=== PATIENT | female | born 1995 | race Hispanic/Latino ===

== ENCOUNTER 2017-06-17 23:15 | Day surgery (SDC) | payer OTHER ==
[2017-06-18 02:19] LABS: #Eosinphils 0.1 thou/uL (0.0-0.7); #Lymphocytes 1.2 thou/uL (1.20-3.40); #Monocytes 0.6 thou/uL (0.11-0.59); #Neutrophils 8.1 thou/uL (1.40-6.50); %Basophils 0.3 % (0.0-1.0); %Eosinophils 1.4 % (0.0-10.0); %Lymphocytes 12.3 % (28.0-48.0); %Monocytes 5.8 % (0.0-4.0); Hematocrit 30.3 % (36.0-47.0); Mean Platelet Volume 7.7 fL (7.4-10.4); Red Blood Cell (RBC) Count 3.24 mill/uL (4.00-5.20); White Blood Cell (WBC) Count 10.1 thou/uL (4.8-10.8)
[2017-06-18 02:36] LABS: ALT (SGPT) 13 U/L (8-55); AST (SGOT) 18 U/L (5-34); Alkaline Phosphatase 85 U/L (40-150); Anion Gap 11 mmol/L (10-20); BUN (Urea Nitrogen) 12 mg/dL (7.0-18.7); Bilirubin, Total 0.3 mg/dL (0.2-1.2); Calc. Creatinine Clearance 0 mL/min (70-130); Calcium 9.3 mg/dL (7.8-10.44); Carbon Dioxide 21 mmol/L (22-29); Chloride 106 mmol/L (98-107); Estimated GFR-MDRD Greater than 90; Globulin 3.1 g/dL (2.4-3.5); Protein, Total 6.7 g/dL (6.0-8.3)
[2017-06-18] MEDS ORDERED: Metoclopramide HCl 10 MG/2 ML VIAL ONE (02:49)
[2017-06-18] MEDS ORDERED: Acetaminophen 500 MG TAB ONE (02:49)
--- NOTE | 2017-06-18 04:45 | PRG ---
DATE OF SERVICE: 06/18/2017 TIME: 0155 PHONE CONSULTATION BY THE ER In brief, I just received a phone call by the ER physician on this patient. Apparently, she is a 22 -year-old female with a history of known seizures that has been poorly controlled. She takes Lamict al during this . She states that her seizure activity has continued with about 1-2 seizure s a month during the . According to the ER physician, she is \\\\"6-1/2 months\\\\" but is uns ure of her due date. The ER physician states that she has an GEOLOGIST [facility] physician at another hospital for special care. In the ER, her blood pressure is 110/56, pulse is 89, respirations are 16, temperature is 98.5. OB HISTORY: She is a primigravida. This patient has not been fully evaluated yet in the ER. She p resented today due to a seizure, which is similar to prior seizures she has had. The labor and delivery nurses were made aware of the patient's arrival and had gone down previously to the ER and applied monitors on this patient. According to their report, heart tracin g was with moderate variability and no decelerations. There is no evidence of contractions or vagin al bleeding or ruptured membranes. ASSESSMENT: I just received a phone call on this patient approximately 5 minutes ago by the ER phys jami. This patient is still pending workup. I suggested the following: PLAN: 1. OB ultrasound for dates and confirmation of absence of abnormalities. 2. CBC and complete metabolic profile. 3. Type and Rh. 4. If her workup is compatible with recurrent seizure activity without evidence of contraction lito lety, we may release as an outpatient. 5. For now, we will continue the ER observation with possible transport to Labor and Delivery for o bservation if needed. 6. Once again, this patient has not been fully evaluated by the ER and I just received a rapid phon e call on her notified me of the patient's arrival. We will assess her once the labs and workup is complete in the ER for possible evaluation here in Labor and Delivery.
[2017-06-18] MEDS ORDERED: lamoTRIgine 100 MG TAB PO SCH (05:30)
[2017-06-18 07:38] VITALS: BMI 32.7
--- NOTE | 2017-06-18 08:01 | PRG ---
DATE OF SERVICE: 06/18/2017 TIME OF EVALUATION: 0655 LOCATION: Labor and Delivery triage. REASON FOR OBSERVATION: History of epilepsy with recurrent seizures on Lamictal. HISTORY OF PRESENT ILLNESS: In brief, this is a patient that I had previously dictated on who is a 22-year-old primigravida at 26 weeks and 6 days who was first seen in the ER for recurrent seizure a ctivity (history of epilepsy, no evidence of status epilepticus) and was evaluated earlier with a no nstress test done in the ER. She has been cleared by the ER and I requested that she come up to Lab or and Delivery for nonstress test continuation and to see if Neurology could evaluate the patient. In brief, she was diagnosed with epilepsy at age 15 and has tried a variety of medications. She is currently on Lamictal 200 mg p.o. b.i.d. In the ER, she received an additional 200 mg dose. In e ER, there was no evidence of preeclampsia or abruption. For full details of the initial evaluation from the ER, please turn to that progress note dictated f ew hours ago. I evaluated the patient at bedside on arrival to Labor and Delivery. There is no evidence of uterin e hypertonus or vaginal bleeding. There is no evidence of rupture of membranes. Interventions orde red and an obstetrical ultrasound has been performed in the ER and the results are pending. CONSULTATIONS: Pending, Neurology if available. ASSESSMENT: This is a 22-year-old primigravida at 26 weeks and [address] Adkins for [facility]. She has a neurologist as well, that is Dr. Mendez. PLAN: 1. Nonstress test for now. 2. See if Dr. Mendez and/or covering neurologist can have some assistance during today's observati on. 3. Observe for now. 4. This may be managed as an outpatient, but we will try a Neurology consultation first.
[2017-06-18 09:36] VITALS: TEMP 98.4
--- NOTE | 2017-06-18 11:13 | ULT ---
PRELIMINARY REPORT/[facility]/EMERGENCY AFTER HOURS PROCEDURE: EXAM: US Uterus, Limited CLINICAL HISTORY: 22 years old, female; Pain; Other: S/P seizure- llq pain; Gestational age or lmp: 27wks; TECHNIQUE: Real-time ultrasound of the maternal uterus (limited) with image documentation. COMPARISON: No relevant prior studies available. FINDINGS: Fetus: Single living intrauterine gestation. Heart rate: 131 bpm Presentation: Vertex. Placenta: Anterior. No abruption. Amniotic fluid: Normal. NETTE 19.6 cm. Anatomy: Visualized anatomy is unremarkable. BIOMETRICS Gestational age by US: 27w0d EFW: 1014g - %15 MATERNAL: Uterus: No myometrial mass. Cervix: Unremarkable. Free fluid: No significant free fluid. IMPRESSION: Single viable intrauterine . No acute findings. Thank you for allowing us to participate in the care of your patient. Dictated and Authenticated by: Roni Garg MD 06/18/2017 3:24 AM Central Time ([place] \T\ [place]) FINAL REPORT LIMITED OBSTETRIC SONOGRAM: DATE: 06/18/17. TIME: Performed on emergency basis at 0222 hours. HISTORY: Seizure. Second-trimester . FINDINGS: Findings agree with the preliminary report by Dr. Garg from [facility]. Estimated gestation al age is 27 weeks 0 days. No significant abnormalities are demonstrated. POS: SHAAN
--- NOTE | 2017-06-18 15:42 | DIS ---
DATE OF ADMISSION: 06/18/2017 DATE OF DISCHARGE: 06/18/2017 REASON FOR ADMISSION: Poorly controlled epilepsy at 26 weeks gestation. SUMMARY OF HOSPITAL COURSE: Ms. Long was seen in the emergency room, presenting with poorly contr olled seizures. It does not sound like they were any more or less poorly controlled than before upo n her presentation and did not have status epilepticus. She was seen in the emergency room and then taken to the labor and delivery unit to further assess her fetus as well as to rule out preeclampsi a. Preeclampsia evaluation was negative. The patient has a history of poorly controlled seizures a nd sees Dr. Alexey Adkins at the [facility] and Dr. Demetri Mendez, neurologist, em ployed by [facility]. Phone call was placed with Dr. Mendez and her case was discuss ed. He recommended increasing her Lamictal from 200 p.o. b.i.d. to 200 mg q.a.m., 300 mg p.o. at be dtime, and to call his office in 2 days for followup. This instruction was given to the patient, an d the patient was discharged home. We are unable to get a complete nonstress test due to the patien t's noncooperation with lying on her back; however, intermittent monitoring revealed FHTs in t he 140s to 160s, no decelerations, no contractions noted, and no evidence of distress.
== END 2017-06-18 10:15 | disposition home health service (06) ==
LOC: ERS 23:15 → L&D/OP 23:15 → ERS 06-18 04:35 → L&D/OP 06-18 04:43
PROVIDERS: ATTEND Obstetrics & Gynecology
DX: O99.352 Diseases of the nervous system complicating pregnancy, second trimester (principal); G40.909 Epilepsy, unspecified, not intractable, without status epilepticus; Z3A.26 26 weeks gestation of pregnancy; Z79.899 Other long term (current) drug therapy
CPT/HCPCS: 36415; 76815; 80053; 85025; 96361; 96365; J2765

== ENCOUNTER 2017-09-26 23:24 | Emergency (ER) | payer OTHER ==
[2017-09-27] MEDS ORDERED: Ketorolac Tromethamine 30 MG/ML VIAL ONE (01:20)
[2017-09-27] MEDS ORDERED: Metoclopramide HCl 10 MG/2 ML VIAL ONE (01:21)
[2017-09-27 01:28] LABS: #Eosinphils 0.2 thou/uL (0.0-0.7); #Monocytes 0.4 thou/uL (0.11-0.59); #Neutrophils 5.8 thou/uL (1.40-6.50); %Basophils 0.5 % (0.0-1.0); %Eosinophils 2.6 % (0.0-10.0); %Monocytes 5.1 % (0.0-4.0); %Neutrophils 77.8 % (31.0-61.0); Hemoglobin 11.4 g/dL (12.0-16.0); Mean Corpuscular HGB CONC 33.3 g/dL (32.0-36.0); Mean Corpuscular Hemoglobin 27.9 pg (25.0-35.0); Mean Corpuscular Volume 83.9 fl (77.0-87.0); Mean Platelet Volume 7.4 fL (7.4-10.4); Platelet Count 285 thou/uL (130-400); Red Blood Cell (RBC) Count 4.07 mill/uL (4.00-5.20); White Blood Cell (WBC) Count 7.4 thou/uL (4.8-10.8)
[2017-09-27 01:50] LABS: ALT (SGPT) 11 U/L (8-55); AST (SGOT) 16 U/L (5-34); Alkaline Phosphatase 138 U/L (40-150); Anion Gap 13 mmol/L (10-20); BUN (Urea Nitrogen) 18 mg/dL (7.0-18.7); Bilirubin, Total 0.2 mg/dL (0.2-1.2); Calc. Creatinine Clearance 0 mL/min (70-130); Calcium 9.4 mg/dL (7.8-10.44); Carbon Dioxide 25 mmol/L (22-29); Chloride 105 mmol/L (98-107); Estimated GFR-MDRD 86; Globulin 3.1 g/dL (2.4-3.5); Glucose 107 mg/dL (70-105); Magnesium 2.3 mg/dL (1.7-2.2); Potassium 4.3 mmol/L (3.5-5.1); Protein, Total 7.1 g/dL (6.0-8.3); Sodium 139 mmol/L (136-145)
[2017-09-27 02:45] LABS: Bilirubin Negative (Negative); Blood, Urine Large (Negative); Clarity CLOUDY (Clear); Glucose, Urine (Dipstick) Negative (Negative); Leukocyte Moderate (Negative); Nitrite Negative (Negative); Protein, Urine (Dipstick) 30 mg/dL (Neg-Trace); Specific Gravity, Urine 1.027 (1.002-1.036)
[2017-09-27 02:47] LABS: Bacteria/HPF 1+ HPF (None Seen); Hyaline Casts/LPF 4-6 HYALINE CAST LPF (0-3 Hyaline); Pathc Cast-AUWi Flag 0.94 (0-2.49); RBC/HPF 0-3 HPF (0-3)
[2017-09-27 02:50] LABS: Yeast-AUWi Flag 76.6 (0-25.0)
[2017-09-27 02:59] LABS: Yeast-All Forms None Seen HPF (None Seen)
== END 2017-09-27 03:44 | disposition home or self-care (01) ==
LOC: ERS 23:24
DX: G40.909 Epilepsy, unspecified, not intractable, without status epilepticus (principal); N39.0 Urinary tract infection, site not specified; Z79.899 Other long term (current) drug therapy
CPT/HCPCS: 36415; 80053; 81003; 81015; 83615; 83735; 85025; 96365; 96375; J1885; J2765

== ENCOUNTER 2018-01-07 17:14 | Inpatient (IN) | payer OTHER, SELFPAY ==
[2018-01-07] MEDS ORDERED: Lorazepam 2 MG/ML VIAL ONE (17:38)
[2018-01-07] MEDS ORDERED: OXcarbazepine 300 MG TAB PO SCH (18:00)
[2018-01-07] MEDS ORDERED: levETIRAcetam In NaCl (Iso-Os) 1,000 MG in Premix Bag 1 BAG IVPB ONE ×2 (18:00→20:45)
[2018-01-07 18:43] LABS: #Basophils 0.1 thou/uL (0.0-0.2); #Eosinphils 0.1 thou/uL (0.0-0.7); #Lymphocytes 1.7 thou/uL (1.20-3.40); #Monocytes 0.6 thou/uL (0.11-0.59); %Basophils 0.5 % (0.0-1.0); %Eosinophils 1.2 % (0.0-10.0); %Lymphocytes 18.2 % (28.0-48.0); %Monocytes 6.1 % (0.0-4.0); %Neutrophils 74.1 % (31.0-61.0); Hemoglobin 11.7 g/dL (12.0-16.0); Mean Corpuscular HGB CONC 33.1 g/dL (32.0-36.0); Mean Corpuscular Hemoglobin 27.2 pg (25.0-35.0); Mean Corpuscular Volume 82.1 fl (77.0-87.0); Mean Platelet Volume 7.8 fL (7.4-10.4); Platelet Count 289 thou/uL (130-400); RBC Distribution Width 13.7 % (11.5-14.5); Red Blood Cell (RBC) Count 4.29 mill/uL (4.00-5.20); White Blood Cell (WBC) Count 9.4 thou/uL (4.8-10.8)
[2018-01-07 18:44] LABS: Lavender RECEIVED; Red RECEIVED
[2018-01-07 18:52] LABS: BHCG - Serum Negative (NEGATIVE); Pregs Control Background? CLEAR/WHITE (CLR/WHITE); Pregs Control Bar Appear? YES (CONTROL BAR)
[2018-01-07 19:06] LABS: ALT (SGPT) 16 U/L (8-55); AST (SGOT) 20 U/L (5-34); Albumin 4.1 g/dL (3.5-5.0); Alkaline Phosphatase 94 U/L (40-150); Anion Gap 19 mmol/L (10-20); BUN (Urea Nitrogen) 12 mg/dL (7.0-18.7); Bilirubin, Total 0.3 mg/dL (0.2-1.2); CK (CPK) 200 U/L (29-168); Calc. Creatinine Clearance 0 mL/min (70-130); Calcium 8.5 mg/dL (7.8-10.44); Carbon Dioxide 14 mmol/L (22-29); Chloride 108 mmol/L (98-107); Estimated GFR-MDRD Greater than 90; Globulin 2.8 g/dL (2.4-3.5); Glucose 127 mg/dL (70-105); Potassium 3.9 mmol/L (3.5-5.1); Protein, Total 6.9 g/dL (6.0-8.3); Sodium 137 mmol/L (136-145)
[2018-01-07] MEDS ORDERED: levETIRAcetam 500 MG/100 ML PREMIX BAG ONE (20:40)
[2018-01-07] MEDS ORDERED: Ondansetron ODT 4 MG TAB SL PRN (22:23)
[2018-01-07] MEDS ORDERED: Acetaminophen 325 MG TAB PO PRN (22:23)
[2018-01-07] MEDS ORDERED: Ondansetron HCl/PF 4 MG/2 ML Vial IVP PRN (22:23)
[2018-01-07 22:30] VITALS: BMI 25.6
[2018-01-07] MEDS ORDERED: Sodium Chloride 0.9% 1,000 ML IV SCH (22:30)
[2018-01-07] MEDS ORDERED: Lorazepam 2 MG/ML VIAL SLOW IVP PRN (23:01)
--- NOTE | 2018-01-08 03:27 | HP ---
PRIMARY CARE PHYSICIAN: Dr. Levin. CHIEF COMPLAINT: Seizure. HISTORY OF PRESENT ILLNESS: The patient is a 22-year-old female, who presents to the hospital with s alfonso x3 at home. The patient currently is postictal. All the history is obtained from the patien t's sister, who is at the bedside and on the phone with the patient's mom. The patient's sister stat ed that the patient had her typical seizure involving tonic-clonic movements, which lasted up to 3 mi nutes. The patient had 3 seizures at home and then was transferred to the ER for further evaluation. The patient recently had a baby in August and has seen her neurologist, who added Keppra in addit ion to her Lamictal for seizure precaution. According to patient's family, the patient has not been taking her medications. States that "they do not work." According to family and documentation, the patient has had seizure disorder for the past 12-13 years. PAST MEDICAL HISTORY: Seizure disorder. PAST SURGICAL HISTORY: She had a . SOCIAL HISTORY: She denies any alcohol, drug use or smoking history. FAMILY HISTORY: No history of diabetes or hypertension. ALLERGIES: She has had no known drug allergies. MEDICATIONS: She is supposed to be on Lamictal and Keppra. PHYSICAL EXAMINATION: VITAL SIGNS: In the ER, temperature of 98.8, pulse of 111, blood pressure 112/56, respirations are 2 0, saturations pzi147% on 2 liters. GENERAL: The patient is up in bed, is arousable on verbal upon calling her name; however, she goes r ight back to sleep. CARDIOVASCULAR: S1, S2 present. No murmurs, rubs or gallops. LUNGS: Clear to auscultation. No rhonchi or wheezes noted. ABDOMEN: Soft, nontender. Bowel sounds are present x2. EXTREMITIES: No edema. NEUROLOGIC: Pupils are bilaterally equal and reactive to light. The patient does follow commands; h owever, currently she is drowsy, but she does open her eyes upon calling her name. LABORATORY DATA: Laboratory results are as the following: WBCs of 9.4, hemoglobin of 11.7, hematocr it of 35.2, platelets of 289. Chemistry: Sodium of 137, potassium of 3.9, BUN of 12, creatinine of 0.73. CK of 200. Serum test is negative. Her LFTs are also normal. ASSESSMENT AND PLAN: The patient is a very pleasant 22-year-old female who came in for seizure. 1. Seizures. The patient was given Keppra in the ER and also was ordered some oxcarbazepine 300 mg p.o. We will consult Neurology. We will continue to monitor for seizure precautions. 2. We will also check a UA to make sure the patient does not have a urinary tract infection. 3. Mildly elevated CK. The patient is currently on gentle hydration. We will continue to monitor. 4. Deep venous thrombosis prophylaxis. We will put the patient on subcu heparin.
[2018-01-08 07:14] LABS: Anion Gap 13 mmol/L (10-20); BUN (Urea Nitrogen) 8 mg/dL (7.0-18.7); Calc. Creatinine Clearance 150 mL/min (70-130); Calcium 8.6 mg/dL (7.8-10.44); Carbon Dioxide 20 mmol/L (22-29); Chloride 109 mmol/L (98-107); Estimated GFR-MDRD Greater than 90; Glucose 93 mg/dL (70-105); Potassium 3.6 mmol/L (3.5-5.1); Sodium 138 mmol/L (136-145)
[2018-01-08 07:43] LABS: Band 5 % (5-11); Hemoglobin 10.4 g/dL (12.0-16.0); Lymphocytes 19 % (28-48); MDiff Complete? YES; Mean Corpuscular HGB CONC 33.6 g/dL (32.0-36.0); Mean Corpuscular Hemoglobin 27.1 pg (25.0-35.0); Mean Corpuscular Volume 80.6 fl (77.0-87.0); Mean Platelet Volume 7.9 fL (7.4-10.4); Monocytes 6 % (0-4); Neutrophil 69 % (31-61); Platelet Count 220 thou/uL (130-400); RBC Distribution Width 13.8 % (11.5-14.5); Red Blood Cell (RBC) Count 3.83 mill/uL (4.00-5.20); White Blood Cell (WBC) Count 9.3 thou/uL (4.8-10.8)
[2018-01-08 08:19] LABS: Bilirubin Negative (Negative); Blood, Urine Moderate (Negative); Clarity CLEAR (Clear); Glucose, Urine (Dipstick) Negative (Negative); Leukocyte Trace (Negative); Nitrite Negative (Negative); Protein, Urine (Dipstick) Negative (Neg-Trace); Specific Gravity, Urine 1.013 (1.002-1.036); Urobilinogen 0.2 mg/dL (0.2-1.0); pH, Urine 5.5 (5.0-9.0)
[2018-01-08 08:22] LABS: Bacteria/HPF 1+ HPF (None Seen); Hyaline Casts/LPF 0-3 HYALINE CAST LPF (0-3 Hyaline); Pathc Cast-AUWi Flag 0.43 (0-2.49); Squamous Epithelial 0-3 HPF (0-3)
[2018-01-08 08:37] LABS: RBC/HPF 0-3 HPF (0-3)
[2018-01-08] MEDS ORDERED: Heparin 5,000 UNITS/ML VIAL SC SCH (09:00)
[2018-01-08] MEDS ORDERED: levETIRAcetam 500 MG TAB PO SCH (09:00)
[2018-01-08 11:27] VITALS: BP 104/65; TEMP 98.6
--- NOTE | 2018-01-08 12:22 | PDOC.PN ---
- Subjective Encounter Start Date: 01/08/18 Encounter Start Time: 12:19 Patient seen and examined, no new issues or complaints, states she stopped taking her medications because they weren't helping her, no other issues or complaints, all questions answered. - Objective Vital Signs & Weight: Vital Signs (12 hours) Temp Pulse Resp BP Pulse Ox 01/08/18 11:26 98.6 F 76 16 104/65 95 01/08/18 08:00 98.4 F 85 16 92/54 L 95 01/08/18 04:00 98.2 F 74 16 92/52 L 97 Result Diagrams: 01/08/18 06:16 01/08/18 06:16 Phys Exam - Physical Examination Constitutional: NAD HEENT: PERRLA, moist MMs, sclera anicteric Neck: no nodes, no JVD, supple Respiratory: no wheezing, no rales, no rhonchi Cardiovascular: RRR, no significant murmur, no rub Gastrointestinal: soft, non-tender, no distention Musculoskeletal: no edema, pulses present Neurological: non-focal, normal sensation Dx/Plan (1) Seizure Code(s): R56.9 - UNSPECIFIED CONVULSIONS Status: Acute - Plan * continue current seizure medication regimen * neurology consulted and evaluation pending * will await neuro input * case and plan at length, she understands and agrees with this plan
--- NOTE | 2018-01-08 15:21 | PDOC.EVN ---
Event Note - Event Note Event Note: DC SUMMARY DICATED #[id number]
--- NOTE | 2018-01-09 20:29 | PRG ---
DATE OF SERVICE: 01/08/2018 REFERRING PHYSICIAN: Hospitalist Service. Ms. Long is a 22-year-old female, who I have been following for epilepsy. She apparently was noncompliant with her medication and had multiple generalized seizures yesterday. She was loaded with 2 g of Keppra and slept through the night. She has not had any seizure activity today. Mother reports that she felt like the medications were not working, so she stopped them completely. I have suggested that we continue Keppra 750 mg twice a day and her Lamictal 300 mg twice a day. I will fo llow up with her in the office.
--- NOTE | 2018-01-10 12:18 | DIS ---
DATE OF ADMISSION: 01/07/2018 DATE OF DISCHARGE: 01/08/2018 ADMITTING DIAGNOSIS: Seizure. DISCHARGE DIAGNOSIS: Seizure. HOSPITAL COURSE: This is a 22-year-old female who was admitted to the internal medicine team and als o seen by Neurology for seizures. The patient apparently stated that she had not taken her medicatio ns as directed because they were supposedly not helping her and the patient had a seizure. The patie nt was admitted to team, followed very closely by Neurology and Internal Medicine. Recommendations w ere made restart the patient on her home seizure medications. Prescriptions were given for bot h of those seizure medications that she was taking and the patient was advised to follow up with Neur ology in a week as well as her PCP in 2 weeks. DISPOSITION: Home. MEDICATIONS: See MAR. DIET: Low fat, low calorie, high fiber diet. ACTIVITY: As tolerated with assistance as needed. CONDITION: Stable. PROGNOSIS: Good. FOLLOWUP: Follow up with PCP in 2 weeks. Neurology in 1 week. Case and plan discussed with the patient at length. She understands and agrees with this plan.
== END 2018-01-08 15:57 | disposition home or self-care (01) | DRG 101 ==
LOC: ERS 17:14 → 2SE 20:30
PROVIDERS: ADMIT Internal Medicine; ATTEND Internal Medicine
DX: G40.909 Epilepsy, unspecified, not intractable, without status epilepticus (principal); Z91.14 Patient's other noncompliance with medication regimen
CPT/HCPCS: 36415; 80048; 80053; 81001; 82550; 84703; 85007; 85025; 85027; 93005; 96361; 96365; 96366; 96375; J1644; J1953; J2060

== ENCOUNTER 2018-02-02 12:15 | Emergency (ER) | payer SELFPAY | END 2018-02-02 12:54 | disposition home or self-care (01) | LOC: ERS 12:15 | DX: M25.462 Effusion, left knee (principal); G40.909 Epilepsy, unspecified, not intractable, without status epilepticus; Z79.899 Other long term (current) drug therapy | CPT/HCPCS: 99283 ==

== ENCOUNTER 2018-02-08 21:29 | Emergency (ER) | payer SELFPAY ==
[2018-02-08 23:00] LABS: #Eosinphils 0.1 thou/uL (0.0-0.7); #Monocytes 0.4 thou/uL (0.11-0.59); #Neutrophils 4.7 thou/uL (1.40-6.50); %Basophils 0.7 % (0.0-1.0); %Eosinophils 1.7 % (0.0-10.0); %Lymphocytes 16.1 % (28.0-48.0); %Monocytes 6.9 % (0.0-4.0); %Neutrophils 74.6 % (31.0-61.0); Hemoglobin 11.1 g/dL (12.0-16.0); Mean Corpuscular HGB CONC 33.7 g/dL (32.0-36.0); Mean Corpuscular Hemoglobin 27.2 pg (25.0-35.0); Mean Corpuscular Volume 80.6 fl (77.0-87.0); Mean Platelet Volume 7.3 fL (7.4-10.4); Platelet Count 239 thou/uL (130-400); RBC Distribution Width 13.1 % (11.5-14.5); Red Blood Cell (RBC) Count 4.08 mill/uL (4.00-5.20); White Blood Cell (WBC) Count 6.3 thou/uL (4.8-10.8)
[2018-02-08] MEDS ORDERED: Adacel (T-DAP) 0.5 ML VIAL ONE (23:01)
[2018-02-08] MEDS ORDERED: levETIRAcetam In NaCl (Iso-Os) 1,000 MG in Premix Bag 1 BAG IVPB SCH (23:30)
[2018-02-09] MEDS ORDERED: Bacitracin Zinc 1 Packet ONE (00:42)
[2018-02-09 00:56] LABS: ALT (SGPT) 26 U/L (8-55); AST (SGOT) 24 U/L (5-34); Albumin 4.2 g/dL (3.5-5.0); Alkaline Phosphatase 89 U/L (40-150); Anion Gap 12 mmol/L (10-20); BUN (Urea Nitrogen) 14 mg/dL (7.0-18.7); Bilirubin, Total 0.2 mg/dL (0.2-1.2); Calc. Creatinine Clearance 0 mL/min (70-130); Calcium 9.4 mg/dL (7.8-10.44); Carbon Dioxide 25 mmol/L (22-29); Chloride 106 mmol/L (98-107); Estimated GFR-MDRD Greater than 90; Globulin 2.8 g/dL (2.4-3.5); Glucose 87 mg/dL (70-105); Magnesium 2.1 mg/dL (1.7-2.2); Potassium 3.8 mmol/L (3.5-5.1); Sodium 139 mmol/L (136-145)
[2018-02-09 01:17] LABS: Bilirubin Negative (Negative); Blood, Urine Large (Negative); Clarity CLOUDY (Clear); Glucose, Urine (Dipstick) Negative (Negative); Leukocyte Trace (Negative); Nitrite Negative (Negative); Protein, Urine (Dipstick) 30 mg/dL (Neg-Trace); Specific Gravity, Urine 1.029 (1.002-1.036)
[2018-02-09 01:20] LABS: Bacteria/HPF 1+ HPF (None Seen); Pathc Cast-AUWi Flag 1.59 (0-2.49); RBC/HPF 21-50 HPF (0-3)
[2018-02-09 01:27] LABS: Oval Fat Bodies/HPF None Seen HPF (None Seen); Renal Epithelial None Seen HPF (0-3); Sperm/HPF None Seen HPF (None Seen); Transitional Epithelial NONE SEEN HPF (0-3); Trichomonas/HPF None Seen HPF (None Seen); Yeast-All Forms None Seen HPF (None Seen)
[2018-02-09 01:28] LABS: Amphetamine Not Detected (NotDetected); Barbiturates Screen Not Detected (NotDetected); Benzodiazepine Screen Not Detected (NotDetected); Cocaine Metabolite Screen Not Detected (NotDetected); Hyaline Casts/LPF 0-3 HYALINE CAST LPF (0-3 Hyaline); Medtox Control Line Valid? VALID (VALID); Medtox Reader # READER 1; Methadone Not Detected (NotDetected); Methamphetamine Not Detected (NotDetected); Opiate Screen Not Detected (NotDetected); Oxycodone Screen Not Detected (NotDetected); Phencyclidine (PCP) Not Detected (NotDetected); Pregnancy Test - Urine (BHCG) Negative (Negative); Pregu Control Background? CLEAR/WHITE (CLR/WHITE); Pregu Control Bar Appear? YES (CONTROL BAR); Specific Gravity 1.029 (1.002-1.036); THC/Cannabinoid Screen Not Detected (NotDetected); Tricyclic Screen Not Detected (NotDetected)
== END 2018-02-09 02:01 | disposition home or self-care (01) ==
LOC: ERS 21:29
DX: G40.909 Epilepsy, unspecified, not intractable, without status epilepticus (principal); Z79.899 Other long term (current) drug therapy
CPT/HCPCS: 36415; 80053; 80306; 81003; 81015; 81025; 83735; 85025; 90715; 93005; 94760; 96365; J1953

== ENCOUNTER 2018-09-21 23:56 | Emergency (ER) | payer MEDICARE ==
[2018-09-22] MEDS ORDERED: levETIRAcetam In NaCl (Iso-Os) 1,000 MG in Premix Bag 1 BAG IVPB ONE (00:15)
[2018-09-22] MEDS ORDERED: Ondansetron PF 4 MG/2 ML Vial ONE (00:29)
[2018-09-22] MEDS ORDERED: Acetaminophen 500 MG TAB ONE (00:29)
[2018-09-22 00:41] LABS: #Basophils 0.1 thou/uL (0.0-0.2); #Eosinphils 0.1 thou/uL (0.0-0.7); #Lymphocytes 1.4 thou/uL (1.20-3.40); #Monocytes 0.6 thou/uL (0.11-0.59); #Neutrophils 9.4 thou/uL (1.40-6.50); %Basophils 0.7 % (0.0-1.0); %Eosinophils 0.8 % (0.0-10.0); %Lymphocytes 12.4 % (21.0-51.0); %Monocytes 5.2 % (0.0-10.0); Hemoglobin 12.2 g/dL (12.0-16.0); Mean Corpuscular HGB CONC 33.6 g/dL (32.0-36.0); Mean Corpuscular Hemoglobin 28.1 pg (27.0-31.0); Mean Corpuscular Volume 83.6 fL (78.0-98.0); Mean Platelet Volume 8.7 fL (7.4-10.4); Platelet Count 242 thou/uL (130-400); RBC Distribution Width 12.6 % (11.5-14.5); Red Blood Cell (RBC) Count 4.34 mill/uL (4.20-5.40); White Blood Cell (WBC) Count 11.6 thou/uL (4.8-10.8)
[2018-09-22 00:59] LABS: ALT (SGPT) 16 U/L (8-55); AST (SGOT) 33 U/L (5-34); Albumin 4.4 g/dL (3.5-5.0); Alkaline Phosphatase 92 U/L (40-150); Anion Gap 15 mmol/L (10-20); BUN (Urea Nitrogen) 16 mg/dL (7.0-18.7); Bilirubin, Total 0.2 mg/dL (0.2-1.2); Calc. Creatinine Clearance 0 mL/min (70-130); Calcium 9.3 mg/dL (7.8-10.44); Carbon Dioxide 19 mmol/L (22-29); Chloride 106 mmol/L (98-107); Estimated GFR-MDRD Greater than 90; Globulin 3.9 g/dL (2.4-3.5); Glucose 128 mg/dL (70-105); Potassium 5.3 mmol/L (3.5-5.1); Protein, Total 8.3 g/dL (6.0-8.3); Sodium 135 mmol/L (136-145)
[2018-09-22 01:13] LABS: Bilirubin Negative (Negative); Blood, Urine Negative (Negative); Clarity CLEAR (Clear); Glucose, Urine (Dipstick) Negative (Negative); Leukocyte Negative (Negative); Nitrite Negative (Negative); Protein, Urine (Dipstick) 30 mg/dL (Neg-Trace); Specific Gravity, Urine 1.024 (1.002-1.036)
[2018-09-22 01:14] LABS: Pregnancy Test - Urine (BHCG) Negative (Negative); Pregu Control Background? CLEAR/WHITE (CLR/WHITE); Pregu Control Bar Appear? YES (CONTROL BAR); Specific Gravity 1.024 (1.002-1.036)
[2018-09-22 01:16] LABS: Bacteria/HPF Rare-Few HPF (None Seen); Hyaline Casts/LPF 0-3 HYALINE CAST LPF (0-3 Hyaline); Pathc Cast-AUWi Flag 0.43 (0-2.49); Squamous Epithelial 0-3 HPF (0-3); WBC/HPF 0-3 HPF (0-3)
[2018-09-22 01:21] LABS: RBC/HPF 0-3 HPF (0-3)
== END 2018-09-22 02:11 | disposition home or self-care (01) ==
LOC: ERS 23:56
DX: G40.909 Epilepsy, unspecified, not intractable, without status epilepticus (principal); Z79.899 Other long term (current) drug therapy
CPT/HCPCS: 80053; 80177; 81003; 81015; 81025; 85025; 96365; 96375; J1953; J2405

== ENCOUNTER 2019-07-14 00:38 | Emergency (ER) | payer MEDICARE ==
[2019-07-14] MEDS ORDERED: Adacel (T-DAP) 0.5 ML SYRINGE ONE (01:03)
[2019-07-14] MEDS ORDERED: levETIRAcetam 500 MG/100 ML PREMIX BAG ONE (01:03)
[2019-07-14] MEDS ORDERED: Acetaminophen 325 MG TAB ONE (01:57)
== END 2019-07-14 02:35 | disposition home or self-care (01) ==
LOC: ERS 00:38
DX: G40.909 Epilepsy, unspecified, not intractable, without status epilepticus (principal); Z79.899 Other long term (current) drug therapy
CPT/HCPCS: 90715; 99284; J1953

== ENCOUNTER 2019-07-26 06:17 | Emergency (ER) | payer MEDICARE ==
[2019-07-26 06:39] LABS: #Eosinphils 0.3 thou/uL (0.0-0.7); #Lymphocytes 2.3 thou/uL (1.20-3.40); #Monocytes 0.5 thou/uL (0.11-0.59); #Neutrophils 5.7 thou/uL (1.40-6.50); %Basophils 0.5 % (0.0-1.0); %Eosinophils 3.2 % (0.0-10.0); %Lymphocytes 25.6 % (21.0-51.0); %Neutrophils 64.7 % (42.0-75.0); Hemoglobin 12.7 g/dL (12.0-16.0); Mean Corpuscular HGB CONC 35.4 g/dL (32.0-36.0); Mean Corpuscular Hemoglobin 31.3 pg (27.0-31.0); Mean Corpuscular Volume 88.2 fL (78.0-98.0); Platelet Count 259 thou/uL (130-400); RBC Distribution Width 11.6 % (11.5-14.5); Red Blood Cell (RBC) Count 4.06 mill/uL (4.20-5.40); White Blood Cell (WBC) Count 8.9 thou/uL (4.8-10.8)
[2019-07-26 07:01] LABS: ALT (SGPT) 10 U/L (8-55); AST (SGOT) 16 U/L (5-34); Albumin 4.8 g/dL (3.5-5.0); Alkaline Phosphatase 93 U/L (40-110); Anion Gap 11 mmol/L (10-20); BUN (Urea Nitrogen) 14 mg/dL (7.0-18.7); Bilirubin, Total 0.3 mg/dL (0.2-1.2); Calc. Creatinine Clearance 0 mL/min (70-130); Calcium 9.5 mg/dL (7.8-10.44); Carbon Dioxide 25 mmol/L (22-29); Chloride 106 mmol/L (98-107); Estimated GFR-MDRD Greater than 90; Globulin 2.9 g/dL (2.4-3.5); Glucose 114 mg/dL (70-105); Potassium 3.9 mmol/L (3.5-5.1); Protein, Total 7.7 g/dL (6.0-8.3); Sodium 138 mmol/L (136-145)
[2019-07-26 07:04] LABS: Pregnancy Test - Urine (BHCG) Negative (Negative); Pregu Control Background? CLEAR/WHITE (CLR/WHITE); Pregu Control Bar Appear? YES (CONTROL BAR); Specific Gravity 1.033 (1.002-1.036)
[2019-07-26 07:05] LABS: Bilirubin Negative (Negative); Blood, Urine 2+ (Negative); Clarity Clear (Clear); Glucose, Urine (Dipstick) Normal (Negative); Leukocyte Negative Leu/uL (Negative); Nitrite Negative (Negative); Protein, Urine (Dipstick) 20 mg/dL (Neg-Trace); Urobilinogen Normal mg/dL (Less than 2); WBC/HPF 0-3 HPF (0-3)
[2019-07-26 07:17] LABS: Bacteria/HPF 2+ HPF (None Seen)
--- NOTE | 2019-07-26 10:01 | ULT ---
GALLBLADDER ULTRASOUND: Date: 07/26/19 HISTORY: Right upper quadrant pain. FINDINGS: Real-time imaging of the right upper quadrant shows echogenic foci with shadowing within the gallblad yu, compatible with stones. The common duct is 2-3 mm. Visualized liver parenchyma shows some mild i ncreased echogenicity. It measures 14.6 cm in length. Technologist describes a negative ultrasound Mu rphy's sign. Pancreas is obscured. Right kidney is normal in size and not obstructed. IMPRESSION: Multiple cholelithiasis with a normal caliber common duct. POS: [facility]
== END 2019-07-26 08:43 | disposition home or self-care (01) ==
LOC: ERS 06:17
DX: K80.50 Calculus of bile duct without cholangitis or cholecystitis without obstruction (principal); G40.909 Epilepsy, unspecified, not intractable, without status epilepticus; Z79.899 Other long term (current) drug therapy
CPT/HCPCS: 36415; 76705; 80053; 81003; 81015; 81025; 85025

== ENCOUNTER 2019-08-07 18:43 | Emergency (ER) | payer MEDICARE ==
[2019-08-07 19:27] LABS: #Basophils 0.1 thou/uL (0.0-0.2); #Eosinphils 0.5 thou/uL (0.0-0.7); #Lymphocytes 3.4 thou/uL (1.20-3.40); #Monocytes 0.7 thou/uL (0.11-0.59); #Neutrophils 6.1 thou/uL (1.40-6.50); %Basophils 0.7 % (0.0-1.0); %Eosinophils 4.4 % (0.0-10.0); %Lymphocytes 31.6 % (21.0-51.0); %Monocytes 6.9 % (0.0-10.0); %Neutrophils 56.5 % (42.0-75.0); Hemoglobin 13.3 g/dL (12.0-16.0); Mean Corpuscular HGB CONC 34.4 g/dL (32.0-36.0); Mean Corpuscular Hemoglobin 30.5 pg (27.0-31.0); Mean Corpuscular Volume 88.7 fL (78.0-98.0); Mean Platelet Volume 8.4 fL (7.4-10.4); Platelet Count 246 thou/uL (130-400); RBC Distribution Width 11.5 % (11.5-14.5); Red Blood Cell (RBC) Count 4.35 mill/uL (4.20-5.40); White Blood Cell (WBC) Count 10.8 thou/uL (4.8-10.8)
[2019-08-07 19:28] LABS: BHCG - Serum Negative (NEGATIVE); Pregs Control Background? CLEAR/WHITE (CLR/WHITE); Pregs Control Bar Appear? YES (CONTROL BAR)
[2019-08-07 19:52] LABS: ALT (SGPT) 17 U/L (8-55); AST (SGOT) 22 U/L (5-34); Albumin 4.6 g/dL (3.5-5.0); Alkaline Phosphatase 101 U/L (40-110); Anion Gap 23 mmol/L (10-20); BUN (Urea Nitrogen) 12 mg/dL (7.0-18.7); Bilirubin, Total 0.3 mg/dL (0.2-1.2); Calc. Creatinine Clearance 0 mL/min (70-130); Calcium 9.4 mg/dL (7.8-10.44); Carbon Dioxide 17 mmol/L (22-29); Chloride 104 mmol/L (98-107); Estimated GFR-MDRD 85; Globulin 3.5 g/dL (2.4-3.5); Glucose 114 mg/dL (70-105); Potassium 3.6 mmol/L (3.5-5.1); Protein, Total 8.1 g/dL (6.0-8.3); Sodium 140 mmol/L (136-145)
== END 2019-08-07 20:25 | disposition home or self-care (01) ==
LOC: ERS 18:43
DX: K80.20 Calculus of gallbladder without cholecystitis without obstruction (principal); G40.909 Epilepsy, unspecified, not intractable, without status epilepticus
CPT/HCPCS: 80053; 84703; 85025; 93005

== ENCOUNTER 2020-09-18 23:08 | Emergency (ER) | payer MEDICARE ==
[2020-09-18] MEDS ORDERED: levETIRAcetam 500 MG/100 ML PREMIX BAG ONE (23:30)
[2020-09-18 23:44] LABS: BHCG - Serum Negative (NEGATIVE); Pregs Control Background? CLEAR/WHITE (CLR/WHITE); Pregs Control Bar Appear? YES (CONTROL BAR)
[2020-09-18 23:59] LABS: ALT (SGPT) 14 U/L (8-55); AST (SGOT) 20 U/L (5-34); Albumin 4.8 g/dL (3.5-5.0); Alkaline Phosphatase 79 U/L (40-110); Anion Gap 15 mmol/L (10-20); BUN (Urea Nitrogen) 14 mg/dL (7.0-18.7); Bilirubin, Total 0.4 mg/dL (0.2-1.2); Calc. Creatinine Clearance 0 mL/min (70-130); Calcium 9.2 mg/dL (7.8-10.44); Carbon Dioxide 26 mmol/L (22-29); Chloride 102 mmol/L (98-107); Globulin 3.7 g/dL (2.4-3.5); Glucose 96 mg/dL (70-105); Potassium 3.6 mmol/L (3.5-5.1); Protein, Total 8.5 g/dL (6.0-8.3); Sodium 139 mmol/L (136-145)
[2020-09-19] MEDS ORDERED: Lidocaine 1% PF 5 ML VIAL ONE (00:10)
--- NOTE | 2020-09-19 07:22 | CT ---
PRELIMINARY REPORT/[facility]/EMERGENCY AFTER HOURS PROCEDURE: EXAM: CT Head Without Intravenous Contrast. CLINICAL HISTORY: SEIZURE APPROX 30MINS GRAPHIC ARTS TECHNICIAN. SEIZURE OCCURED IN THE SHOWER. UNWITNESSED. PT HAS A LAC TO BACK OF HEAD. BLEEDING CONTROLLED. TAKES KEPPRA FOR SEIZURES AND HAS BEEN TAKING MEDICATION DIRECTED. LAST SEIZURE WAS TUESDAY. TECHNIQUE: Axial computed tomography images of the head/brain without intravenous contrast. COMPARISON: 12/10/16. FINDINGS: BRAIN: No acute intraparenchymal hemorrhage. No mass lesion. No CT evidence for acute territorial inf arct. No midline shift or extra-axial collection. VENTRICLES: No hydrocephalus. ORBITS: The orbits are unremarkable. SINUSES AND MASTOIDS: The paranasal sinuses and mastoid air cells are clear. SOFT TISSUES: No significant facial or scalp soft tissue swelling evident. No radiopaque foreign body is seen. BONES: No acute skull fracture. IMPRESSION: No acute intracranial abnormality. ELECTRONICALLY SIGNED BY: Heidi Samaniego MD Sep 19, 2020 12:10:52 AM BARREL ASSEMBLER HELPER FINAL REPORT HEAD CT WITHOUT CONTRAST: DATE: 09/19/2020. COMPARISON: 12/10/2016. HISTORY: Seizure, head trauma. FINDINGS: I agree with the preliminary report. The visualized paranasal sinuses and mastoid air cells are well aerated. There is no displaced calvarial fracture, intracranial hemorrhage, midline shift, or mass effect. IMPRESSION: No acute findings. Transcribed Date/Time: 09/19/2020 8:35 AM
== END 2020-09-19 00:47 | disposition home or self-care (01) ==
LOC: ERS 23:08
DX: G40.909 Epilepsy, unspecified, not intractable, without status epilepticus (principal); S01.01XA Laceration without foreign body of scalp, initial encounter; W01.198A Fall on same level from slipping, tripping and stumbling with subsequent striking against other object, initial encounter
CPT/HCPCS: 12002; 70450; 80053; 84703; 96365; J1953

== ENCOUNTER 2020-09-28 13:20 | Emergency (ER) | payer MEDICARE | END 2020-09-28 14:07 | disposition home or self-care (01) | LOC: ERS 13:20 | DX: S01.01XD Laceration without foreign body of scalp, subsequent encounter (principal); G40.909 Epilepsy, unspecified, not intractable, without status epilepticus; Z79.899 Other long term (current) drug therapy ==

== ENCOUNTER 2020-10-01 17:55 | Emergency (ER) | payer MEDICARE ==
[2020-10-01 18:24] LABS: #Eosinphils 0.1 thou/uL (0.0-0.7); #Lymphocytes 2.1 thou/uL (1.20-3.40); #Monocytes 0.6 thou/uL (0.11-0.59); %Basophils 0.2 % (0.0-1.0); %Eosinophils 1.5 % (0.0-10.0); %Monocytes 5.8 % (0.0-10.0); %Neutrophils 71.5 % (42.0-75.0); Mean Corpuscular HGB CONC 34.2 g/dL (32.0-36.0); Mean Corpuscular Hemoglobin 30.5 pg (27.0-31.0); Mean Corpuscular Volume 89.3 fL (78.0-98.0); Mean Platelet Volume 8.2 fL (7.4-10.4); Platelet Count 241 thou/uL (130-400); Red Blood Cell (RBC) Count 4.27 mill/uL (4.20-5.40); White Blood Cell (WBC) Count 9.8 thou/uL (4.8-10.8)
[2020-10-01 18:32] LABS: BHCG - Serum Negative (NEGATIVE); Pregs Control Background? CLEAR/WHITE (CLR/WHITE); Pregs Control Bar Appear? YES (CONTROL BAR)
[2020-10-01 18:45] LABS: ALT (SGPT) 37 U/L (8-55); AST (SGOT) 37 U/L (5-34); Albumin 4.5 g/dL (3.5-5.0); Alkaline Phosphatase 81 U/L (40-110); Anion Gap 16 mmol/L (10-20); BUN (Urea Nitrogen) 17 mg/dL (7.0-18.7); Bilirubin, Total 0.3 mg/dL (0.2-1.2); Calc. Creatinine Clearance 0 mL/min (70-130); Calcium 9.1 mg/dL (7.8-10.44); Carbon Dioxide 21 mmol/L (22-29); Chloride 105 mmol/L (98-107); Globulin 3.6 g/dL (2.4-3.5); Glucose 116 mg/dL (70-105); Potassium 4.3 mmol/L (3.5-5.1); Protein, Total 8.1 g/dL (6.0-8.3); Sodium 138 mmol/L (136-145)
[2020-10-01] MEDS ORDERED: Acetaminophen 325 MG TAB ONE (19:11)
--- NOTE | 2020-10-18 16:41 | EKG ---
Test Reason : SEIZURE Blood Pressure : / mmHG Vent. Rate : 110 BPM Atrial Rate : 110 BPM P-R Int : 142 ms QRS Dur : 084 ms QT Int : 350 ms P-R-T Axes : 033 065 013 degrees QTc Int : 473 ms Sinus tachycardia Otherwise normal ECG Confirmed by JILLIAN MARSHALL, INOCENCIO Martinez ([id number]), editor city [place] ([id number]) on 10/18/2020 4:41:32 PM Referred By: JILLIAN Confirmed By:INOCENCIO WALSH MD
== END 2020-10-01 19:16 | disposition home or self-care (01) ==
LOC: ERS 17:55
DX: G40.909 Epilepsy, unspecified, not intractable, without status epilepticus (principal); Z79.899 Other long term (current) drug therapy
CPT/HCPCS: 80053; 80177; 84703; 85025; 93005

== ENCOUNTER 2021-08-09 11:46 | Emergency (ER) | payer MEDICARE, OTHER ==
[~2021-08-09 11:46] MED LIST: Iopamidol-370 76% 500 ML 1 ML ONE
[2021-08-09] MEDS ORDERED: Ondansetron ODT 4 MG TAB ONE (12:22)
[2021-08-09 12:41] LABS: #Eosinphils 0.1 thou/uL (0.0-0.7); #Lymphocytes 0.7 thou/uL (1.20-3.40); #Monocytes 0.4 thou/uL (0.11-0.59); #Neutrophils 5.5 thou/uL (1.40-6.50); %Basophils 0.7 % (0.0-1.0); %Eosinophils 1.2 % (0.0-10.0); %Lymphocytes 10.8 % (21.0-51.0); %Monocytes 5.6 % (0.0-10.0); %Neutrophils 81.7 % (42.0-75.0); Hemoglobin 12.6 g/dL (12.0-16.0); Mean Corpuscular HGB CONC 35.5 g/dL (32.0-36.0); Mean Corpuscular Hemoglobin 33.6 pg (27.0-31.0); Mean Corpuscular Volume 94.4 fL (78.0-98.0); Mean Platelet Volume 7.7 fL (7.4-10.4); Platelet Count 189 thou/uL (130-400); RBC Distribution Width 11.4 % (11.5-14.5); Red Blood Cell (RBC) Count 3.76 mill/uL (4.20-5.40); White Blood Cell (WBC) Count 6.8 thou/uL (4.8-10.8)
[2021-08-09 12:51] LABS: BHCG - Serum Negative (NEGATIVE); Pregs Control Background? CLEAR/WHITE (CLR/WHITE); Pregs Control Bar Appear? YES (CONTROL BAR)
[2021-08-09 13:04] LABS: ALT (SGPT) 1061 U/L (8-55); AST (SGOT) 1119 U/L (5-34); Albumin 3.7 g/dL (3.5-5.0); Alkaline Phosphatase 71 U/L (40-110); Anion Gap 10 mmol/L (10-20); BUN (Urea Nitrogen) 13 mg/dL (7.0-18.7); Bilirubin, Total 0.9 mg/dL (0.2-1.2); Calc. Creatinine Clearance 0 mL/min (70-130); Calcium 8.8 mg/dL (7.8-10.44); Carbon Dioxide 24 mmol/L (22-29); Chloride 106 mmol/L (98-107); Globulin 2.9 g/dL (2.4-3.5); Glucose 118 mg/dL (70-105); Lipase 25 U/L (8-78); Potassium 3.2 mmol/L (3.5-5.1); Protein, Total 6.6 g/dL (6.0-8.3); Sodium 137 mmol/L (136-145)
[2021-08-09] MEDS ORDERED: Potassium Chloride 20 MEQ TAB ONE (13:38)
[2021-08-09 14:10] LABS: MONO NEGATIVE CONTROL ZONE White (Negative) (White); MONO POSITIVE CONTROL Pink Line (Positive) (PINK/RED); Mononucleosis NEGATIVE (NEGATIVE)
== END 2021-08-09 15:30 | disposition home or self-care (01) ==
LOC: ERS 11:46
DX: K76.0 Fatty (change of) liver, not elsewhere classified (principal); R94.5 Abnormal results of liver function studies; R11.2 Nausea with vomiting, unspecified; G40.909 Epilepsy, unspecified, not intractable, without status epilepticus; Z79.899 Other long term (current) drug therapy
CPT/HCPCS: 36415; 74177; 76705; 80053; 83690; 84703; 85025; 86308; Q0162; Q9967

== ENCOUNTER 2022-03-11 14:26 | Emergency (ER) | payer MEDICAID, MEDICARE, SELFPAY ==
[2022-03-11 15:33] LABS: Bilirubin Negative (Negative); Blood, Urine Negative (Negative); Glucose, Urine (Dipstick) Normal (Negative); Ketone, Urine 80 mg/dL (Negative); Leukocyte 250 Leu/uL (Negative); Nitrite Negative (Negative); Protein, Urine (Dipstick) 100 mg/dL (Neg-Trace); RBC/HPF None Seen HPF (0-3); Specific Gravity, Urine 1.037 (1.002-1.036); Urobilinogen 3 mg/dL (Less than 2)
[2022-03-11 15:34] LABS: Bacteria/HPF 1+ HPF (None Seen)
[2022-03-11 15:35] LABS: Clarity Hazy (Clear); Pregnancy Test - Urine (BHCG) Negative (Negative); Pregu Control Background? CLEAR/WHITE (CLR/WHITE); Pregu Control Bar Appear? YES (CONTROL BAR); Specific Gravity 1.037 (1.002-1.036)
[2022-03-11 15:37] LABS: Amphetamine Not Detected (NotDetected); Barbiturates Screen Not Detected (NotDetected); Benzodiazepine Screen Not Detected (NotDetected); Cocaine Metabolite Screen Not Detected (NotDetected); Methadone Not Detected (NotDetected); Methamphetamine Not Detected (NotDetected); Opiate Screen Not Detected (NotDetected); Oxycodone Screen Not Detected (NotDetected); Phencyclidine (PCP) Not Detected (NotDetected); THC/Cannabinoid Screen Not Detected (NotDetected); Tricyclic Screen Not Detected (NotDetected)
[2022-03-12 13:44] LABS: Chlamydia by PCR Not Detected (NotDetected); GC by PCR Not Detected (NotDetected)
== END 2022-03-11 17:07 | disposition home or self-care (01) ==
LOC: ERS 14:26
DX: G40.909 Epilepsy, unspecified, not intractable, without status epilepticus (principal); S00.83XA Contusion of other part of head, initial encounter; N89.8 Other specified noninflammatory disorders of vagina; Z79.899 Other long term (current) drug therapy; X58.XXXA Exposure to other specified factors, initial encounter
CPT/HCPCS: 80306; 81003; 81015; 81025; 87480; 87491; 87510; 87591; 87660; 99284

== ENCOUNTER 2022-03-13 12:07 | Emergency (ER) | payer MEDICAID, MEDICARE ==
[2022-03-13] MEDS ORDERED: Ketorolac Tromethamine 30 MG/ML VIAL ONE (12:58)
[2022-03-13] MEDS ORDERED: Boostrix 0.5 ML (Tdap) VIAL ONE (13:05)
== END 2022-03-13 13:15 | disposition home or self-care (01) ==
LOC: ERS 12:07
DX: L03.116 Cellulitis of left lower limb (principal); G40.909 Epilepsy, unspecified, not intractable, without status epilepticus; Z79.899 Other long term (current) drug therapy
CPT/HCPCS: 90471; 90715; 96372; J1885

== ENCOUNTER 2022-12-08 20:42 | Emergency (ER) | payer MEDICAID, SELFPAY ==
[2022-12-08 22:12] LABS: #Eosinphils 0.1 thou/uL (0.0-0.7); #Lymphocytes 1.8 thou/uL (1.20-3.40); #Monocytes 0.4 thou/uL (0.11-0.59); #Neutrophils 5.6 thou/uL (1.40-6.50); %Basophils 0.6 % (0.0-1.0); %Eosinophils 1.4 % (0.0-10.0); %Lymphocytes 22.2 % (21.0-51.0); %Monocytes 5.3 % (0.0-10.0); %Neutrophils 70.6 % (42.0-75.0); Hemoglobin 12.5 g/dL (12.0-16.0); Mean Corpuscular HGB CONC 35.3 g/dL (32.0-36.0); Mean Corpuscular Hemoglobin 32.7 pg (27.0-31.0); Mean Corpuscular Volume 92.6 fl (78.0-98.0); Mean Platelet Volume 8.5 fL (7.4-10.4); Platelet Count 194 10x3/uL (130-400); Red Blood Cell (RBC) Count 3.81 mill/uL (4.20-5.40); White Blood Cell (WBC) Count 7.9 10x3/uL (4.8-10.8)
[2022-12-08] MEDS ORDERED: Mag-Al 1200 mg/1200 mg/30 ML UDCUP ONE (22:19)
[2022-12-08 22:21] LABS: Bacteria/HPF 1+ HPF (None Seen); Bilirubin Negative (Negative); Blood, Urine Negative (Negative); Clarity Clear (Clear); Glucose, Urine (Dipstick) Normal (Negative); Ketone, Urine Greater than 150 mg/dL (Negative); Leukocyte 250 Leu/uL (Negative); Nitrite Negative (Negative); Protein, Urine (Dipstick) 30 mg/dL (Neg-Trace); RBC/HPF 0-3 HPF (0-3); Specific Gravity, Urine 1.039 (1.002-1.036); Urobilinogen Normal mg/dL (Less than 2); pH, Urine 5.5 (5.0-9.0)
[2022-12-08 22:23] LABS: BHCG - Serum Negative (NEGATIVE); Pregs Control Background? CLEAR/WHITE (CLR/WHITE); Pregs Control Bar Appear? YES (CONTROL BAR)
[2022-12-08 22:45] LABS: ALT (SGPT) 12 U/L (8-55); AST (SGOT) 18 U/L (5-34); Albumin 4.4 g/dL (3.5-5.0); Alkaline Phosphatase 70 U/L (40-110); Anion Gap 13 mmol/L (10-20); BUN (Urea Nitrogen) 19 mg/dL (7.0-18.7); Bilirubin, Total 0.4 mg/dL (0.2-1.2); Calc. Creatinine Clearance 0 mL/min (70-130); Calcium 9.1 mg/dL (7.8-10.44); Carbon Dioxide 21 mmol/L (22-29); Chloride 104 mmol/L (98-107); Estimated GFR 108; Globulin 3.2 g/dL (2.4-3.5); Glucose 84 mg/dL (70-105); Lipase 19 U/L (8-78); Potassium 3.2 mmol/L (3.5-5.1); Protein, Total 7.6 g/dL (6.0-8.3); Sodium 135 mmol/L (136-145)
== END 2022-12-08 23:24 | disposition home or self-care (01) ==
LOC: ERS 20:42
DX: K80.20 Calculus of gallbladder without cholecystitis without obstruction (principal); K21.9 Gastro-esophageal reflux disease without esophagitis
CPT/HCPCS: 36415; 76705; 80053; 81003; 81015; 83690; 84484; 84703; 85025

== ENCOUNTER 2023-09-02 03:18 | Emergency (ER) | payer SELFPAY ==
[2023-09-02 03:41] LABS: Bacteria/HPF None Seen HPF (None Seen); Bilirubin Negative (Negative); Blood, Urine Negative (Negative); CAUTI Indications for Culture Pregnancy; Clarity Clear (Clear); Glucose, Urine (Dipstick) Normal (Negative); Ketone, Urine Negative (Negative); Leukocyte Negative Leu/uL (Negative); Nitrite Negative (Negative); Protein, Urine (Dipstick) Negative (Neg-Trace); RBC/HPF 0-3 HPF (0-3); Squamous Epithelial 0-3 HPF (0-3); Urobilinogen Normal mg/dL (Less than 2); WBC/HPF 0-3 HPF (0-3)
[2023-09-02 03:43] LABS: Urine Culture Reflex Yes Yes
[2023-09-02 04:43] LABS: #Eosinphils 0.2 thou/uL (0.0-0.7); #Monocytes 0.4 thou/uL (0.11-0.59); #Neutrophils 4.8 thou/uL (1.40-6.50); %Basophils 0.5 % (0.0-1.0); %Lymphocytes 14.3 % (21.0-51.0); %Monocytes 6.2 % (0.0-10.0); %Neutrophils 75.5 % (42.0-75.0); Hematocrit 32.7 % (36.0-47.0); Hemoglobin 11.2 g/dL (12.0-16.0); Mean Corpuscular HGB CONC 34.3 g/dL (32.0-36.0); Mean Corpuscular Hemoglobin 31.5 pg (27.0-31.0); Mean Corpuscular Volume 92.1 fl (78.0-98.0); Mean Platelet Volume 10.4 fL (7.4-10.4); Platelet Count 179 10x3/uL (130-400); RBC Distribution Width 12.7 % (11.5-14.5); Red Blood Cell (RBC) Count 3.55 mill/uL (4.20-5.40); White Blood Cell (WBC) Count 6.3 10x3/uL (4.8-10.8)
[2023-09-02] MEDS ORDERED: Ondansetron ODT 4 MG TAB ONE (04:54)
[2023-09-02] MEDS ORDERED: Acetaminophen 500 MG TAB ONE (04:54)
[2023-09-02 05:09] LABS: ALT (SGPT) 11 U/L (8-55); AST (SGOT) 16 U/L (5-34); Albumin 3.6 g/dL (3.5-5.0); Alkaline Phosphatase 63 U/L (40-110); Anion Gap 12 mmol/L (10-20); BUN (Urea Nitrogen) 7 mg/dL (7.0-18.7); Bilirubin, Total 0.3 mg/dL (0.2-1.2); Calc. Creatinine Clearance 0 mL/min (70-130); Carbon Dioxide 23 mmol/L (22-29); Chloride 104 mmol/L (98-107); Estimated GFR 126; Globulin 3.5 g/dL (2.4-3.5); Glucose 101 mg/dL (70-105); Lipase 32 U/L (8-78); Potassium 3.7 mmol/L (3.5-5.1); Protein, Total 7.1 g/dL (6.0-8.3); Sodium 135 mmol/L (136-145)
== END 2023-09-02 06:23 | disposition home or self-care (01) ==
LOC: ERS 03:18
DX: O26.612 Liver and biliary tract disorders in pregnancy, second trimester (principal); K80.70 Calculus of gallbladder and bile duct without cholecystitis without obstruction; O99.352 Diseases of the nervous system complicating pregnancy, second trimester; G40.909 Epilepsy, unspecified, not intractable, without status epilepticus; Z79.899 Other long term (current) drug therapy; Z3A.18 18 weeks gestation of pregnancy
CPT/HCPCS: 36415; 76705; 76815; 80053; 81001; 83690; 85025; 86900; 86901; 87086; Q0162

== ENCOUNTER 2023-12-09 09:18 | Emergency (ER) | payer OTHER, SELFPAY ==
[2023-12-09] MEDS ORDERED: levETIRAcetam 500 MG (5 mL) VIAL ONE (09:41)
[2023-12-09] MEDS ORDERED: LORazepam 2 MG/ML SYR.(CARPUJECT) ONE (09:41)
[2023-12-09 09:46] LABS: #Basophils Less than 0.03 10x3/uL (0.0-0.2); %Basophils 0.2 % (0.0-1.0); %Eosinophils 0.6 % (0.0-10.0); %Lymphocytes 10.6 % (21.0-51.0); %Neutrophils 83.6 % (42.0-75.0); Hematocrit 31.4 % (36.0-47.0); Hemoglobin 11.2 g/dL (12.0-16.0); Mean Corpuscular HGB CONC 35.7 g/dL (32.0-36.0); Mean Corpuscular Hemoglobin 31.7 pg (27.0-31.0); Mean Platelet Volume 10.8 fL (7.4-10.4); Platelet Count 190 10x3/uL (130-400); RBC Distribution Width 12.7 % (11.5-14.5); Red Blood Cell (RBC) Count 3.53 mill/uL (4.20-5.40)
[2023-12-09 10:05] LABS: ALT (SGPT) 8 U/L (8-55); AST (SGOT) 15 U/L (5-34); Albumin 3.5 g/dL (3.5-5.0); Alkaline Phosphatase 170 U/L (40-110); Anion Gap 15 mmol/L (10-20); BUN (Urea Nitrogen) 10 mg/dL (7.0-18.7); Bilirubin, Total 0.3 mg/dL (0.2-1.2); Calc. Creatinine Clearance 0 mL/min (70-130); Calcium 9.1 mg/dL (7.8-10.44); Carbon Dioxide 18 mmol/L (22-29); Chloride 106 mmol/L (98-107); Estimated GFR 125; Globulin 3.2 g/dL (2.4-3.5); Glucose 101 mg/dL (70-105); Protein, Total 6.7 g/dL (6.0-8.3); Sodium 135 mmol/L (136-145)
== END 2023-12-09 10:33 | disposition home or self-care (01) ==
LOC: ERS 09:18
DX: O99.352 Diseases of the nervous system complicating pregnancy, second trimester (principal); G40.909 Epilepsy, unspecified, not intractable, without status epilepticus; Z3A.28 28 weeks gestation of pregnancy; Z79.899 Other long term (current) drug therapy
CPT/HCPCS: 80053; 85025; 96374; 96375; J1953; J2060

== ENCOUNTER 2024-08-11 14:34 | Emergency (ER) | payer OTHER | END 2024-08-11 17:31 | disposition home or self-care (01) | LOC: ERS 14:34 | DX: S83.92XA Sprain of unspecified site of left knee, initial encounter (principal) | CPT/HCPCS: 99283 ==